=== PATIENT | male | born 1935 | race Caucasian/White ===

== ENCOUNTER → 2019-04-11 | Outpatient (CLI) | payer OTHER ==
[2019-04-11 13:03] LABS: CREATININE 1.72 mg/dL (0.70-1.30); POTASSIUM 4.6 mmol/L (3.5-5.1)
== END | disposition home or self-care (01) ==
LOC: LAB 12:20
PROVIDERS: Nurse Practitioner Family
DX: E87.5 Hyperkalemia (principal)